=== PATIENT | male | born 1975 ===

== ENCOUNTER 2017-12-23 13:04 | Emergency (ER) | payer OTHER ==
[2017-12-23 14:16] VITALS: BMI 25.8
[2017-12-23 14:17] VITALS: BP 120/75; PULSE 58; RESP 18; TEMP 98.8; O2SAT 96
--- NOTE | 2017-12-23 14:26 | ED PDOC ---
Arrival/HPI - General Chief Complaint: Lower Extremity Problem/Injury Time Seen by Provider: 12/23/17 14:20 Historian: Patient - History of Present Illness Narrative History of Present Illness (Text): 12/23/17 14:23 42 y/o male, no significant pmh, nkda, c/o rt. ankle pain and swelling x 2 days s/p inversion injury. Aching pain, able to walk and bear weight, no numbness or tingling, no rash, no night sweat, no calf pain, no pain medication taken at home, no other medical or psychological complaints. 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" - Psychiatric Hx Substance Use: No - Anesthesia Hx Anesthesia: Yes Hx Anesthesia Reactions: No Hx Malignant Hyperthermia: No Family/Social History - Physician Review Nursing Documentation Reviewed: Yes Family/Social History: Unknown Family HX Smoking Status: Never Smoked Hx Alcohol Use: No Hx Substance Use: No Allergies/Home Meds Allergies/Adverse Reactions: Allergies No Known Allergies Allergy (Verified 12/23/17 14:16) Review of Systems - Review of Systems Constitutional: absent: Fatigue, Fevers Eyes: absent: Vision Changes ENT: absent: Hearing Changes Respiratory: absent: SOB, Cough Cardiovascular: absent: Chest Pain Gastrointestinal: absent: Abdominal Pain, Nausea, Vomiting Musculoskeletal: Arthralgias, Joint Swelling. absent: Back Pain, Neck Pain, Myalgias Skin: absent: Rash, Pruritis Psychiatric: absent: Anxiety, Depression, Suicidal Ideation Physical Exam Vital Signs Reviewed: Yes Vital Signs Temp Pulse Resp BP Pulse Ox 12/23/17 15:37 98.8 F 58 L 18 120/75 96 12/23/17 14:16 98.8 F 58 L 18 120/75 96 Temperature: Afebrile Blood Pressure: Normal Pulse: Bradycardic Respiratory Rate: Normal Appearance: Positive for: Well-Appearing, Non-Toxic, Comfortable Pain Distress: Mild Mental Status: Positive for: Alert and Oriented X 3 - Systems Exam Head: Present: Atraumatic, Normocephalic Pupils: Present: PERRL Extroacular Muscles: Present: EOMI Conjunctiva: Present: Normal Mouth: Present: Moist Mucous Membranes Neck: Present: Normal Range of Motion Respiratory/Chest: Present: Clear to Auscultation, Good Air Exchange. No: Respiratory Distress, Accessory Muscle Use Cardiovascular: Present: Regular Rate and Rhythm, Normal S1, S2. No: Murmurs Abdomen: No: Tenderness, Distention, Peritoneal Signs Back: Present: Normal Inspection Upper Extremity: Present: Normal Inspection. No: Cyanosis, Edema Lower Extremity: Present: Normal Inspection, Other (Rt. ankle/foot: +ttp on the lateral malleolus on the rt. ankle with mild swelling, no foot tenderness or swelling, able to bear weight, negative nathen and pandey signs, FROM without limitation, sensation intact, motor 5/5, +DPPT pulses, capillary refill< 2 seconds, neurovascular intact. ). No: Edema Neurological: Present: GCS=15, CN II-XII Intact, Speech Normal Skin: Present: Warm, Dry, Normal Color. No: Rashes Psychiatric: Present: Alert, Oriented x 3, Normal Insight, Normal Concentration Medical Decision Making ED Course and Treatment: 12/23/17 14:26 -rt. ankle xray -motrin -observe and reassess 12/23/17 15:19 -Rt. ankle xray show no fracture or dislocation -valerio wrap applied with neurovascular intact, crutches trained -Discharge home with motrin, valerio wrap, crutches, ice compression, non-weight bearing, follow up with your own pmd and orthopedic within 2 days, return to the ER for any new or worsening signs or symptoms. - RAD Interpretation Radiology Orders: 12/23/17 14:20 ANKLE RIGHT 3 VIEWS ROUTINE [RAD] Stat normal rt. ankle radiograph Rolled Gold Plater: Radiologist - Medication Orders Current Medication Orders: Discontinued Medications Ibuprofen (Motrin Tab) 600 mg PO STAT STA Stop: 12/23/17 14:21 Last Admin: 12/23/17 15:02 Dose: 600 mg MAR Pain/Vitals Document 12/23/17 15:02 ALISON (Rec: 12/23/17 15:02 ALISON [id number]) Pain Reassessment Is This A Pain ReAssessment? No Sleep Is patient sleeping during reassessment? No Presence of Pain Presence of Pain Yes - PA / LEAF BINNER / Resident Statement MD/DO has reviewed & agrees with the documentation as recorded. Disposition/Present on Arrival - Present on Arrival Any Indicators Present on Arrival: No History of DVT/PE: No History of Uncontrolled Diabetes: No Urinary Catheter: No History of Decub. Ulcer: No History Surgical Site Infection Following: None - Disposition Have Diagnosis and Disposition been Completed?: Yes Diagnosis: Ankle sprain, Ankle injury Disposition: HOME/ ROUTINE Disposition Time: 14:27 Patient Plan: Discharge Condition: IMPROVED Additional Instructions: -Discharge home with motrin, valerio wrap, crutches, ice compression, non-weight bearing, follow up with your own pmd and orthopedic within 2 days, return to the ER for any new or worsening signs or symptoms. Prescriptions: Ibuprofen [Motrin] 600 mg PO QID PRN #30 tab PRN Reason: Other Referrals: Jaz Stevens MD [Staff Provider] - [place] up [place] [facility] [place] [facility] [place] - Follow up with primary Forms: WORK NOTE
--- NOTE | 2017-12-24 09:00 | RAD ---
PROCEDURE: Right Ankle Radiographs. HISTORY: rt. ankle pain s/p twisting injury COMPARISON: None FINDINGS: BONES: Normal. No fracture. JOINTS: Normal. No osteoarthritis. Ankle mortise maintained. Talar dome intact SOFT TISSUES: Normal. OTHER FINDINGS: None. IMPRESSION: Normal right ankle radiographs.
== END 2017-12-23 15:37 | disposition home or self-care (01) ==
LOC: ED 13:04
DX: S93.401A Sprain of unspecified ligament of right ankle, initial encounter (principal); X50.1XXA Overexertion from prolonged static or awkward postures, initial encounter; Y93.01 Activity, walking, marching and hiking; Y92.480 Sidewalk as the place of occurrence of the external cause

== ENCOUNTER 2018-03-22 22:03 | Emergency (ER) | payer OTHER ==
[2018-03-22 22:08] VITALS: BMI 27.2
[2018-03-22 22:14] VITALS: BP 134/83; PULSE 59; RESP 18; TEMP 98.1
--- NOTE | 2018-03-22 22:56 | ED PDOC ---
Arrival/HPI <Alvino Mccullough - Last Filed: 03/23/18 00:27> - General Historian: Patient - History of Present Illness Time/Duration: > month Symptom Onset: Sudden Symptom Course: Intermittent Quality: Other ("shocking") <Michael Cardoso - Last Filed: 03/23/18 00:56> - General Chief Complaint: Chest Pain Time Seen by Provider: 03/22/18 22:37 - History of Present Illness Narrative History of Present Illness (Text): 03/22/18 22:56 Patient is a 42 year old male with no past medical history presenting to the emergency room with a complaint of intermittent "electrical shocking sensation" on the right side of his chest for greater than one month. Patient decided to come into the hospital tonight after speaking with his mother, "just to get checked out." The sensation is described as an electrical pulse starting in his right shoulder and radiating down to the right side of his chest. It occurs intermittent, most of the time with random movements. The sensation usually lasts less than a second, and at its longest duration lasted 10 seconds. The sensation does not radiate down her right arm or neck. He denies shortness of breath, without any limitations on walking. "I can walk as far as I want to all day long and not get short of breath." Denies fevers, chills, nausea, vomiting, diarrhea, constipation, shortness of breath, abdominal pain, numbness or tingling. 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" - Psychiatric Hx Substance Use: Yes - Anesthesia Hx Anesthesia: Yes Hx Anesthesia Reactions: No Hx Malignant Hyperthermia: No <Michael Cardoso - Last Filed: 03/23/18 00:56> Family/Social History - Physician Review Nursing Documentation Reviewed: Yes Family/Social History: No Known Family HX Smoking Status: Never Smoked Hx Alcohol Use: Yes Frequency of alcohol use: Few days per week Hx Substance Use: Yes Substance used: Marijuana <Michael Cardoso - Last Filed: 03/23/18 00:56> Allergies/Home Meds <Alvino Mccullough - Last Filed: 03/23/18 00:27> <Michael Cardoso - Last Filed: 03/23/18 00:56> Allergies/Adverse Reactions: Allergies No Known Allergies Allergy (Verified 12/23/17 14:16) Review of Systems - Physician Review All systems were reviewed & negative as marked: Yes - Review of Systems Constitutional: Normal Eyes: Normal ENT: Normal Respiratory: Normal Cardiovascular: Chest Pain (electrical-like sensation across right side of chest.). absent: Palpitations, Edema, Calf Pain, CUMMINGS, Orthopnea, Syncope Gastrointestinal: Normal Musculoskeletal: Normal Skin: Normal Neurological: Normal. absent: Headache, Dizziness Endocrine: Normal Hemo/Lymphatic: Normal Psychiatric: Normal <Michael Cardoso - Last Filed: 03/23/18 00:56> Physical Exam Vital Signs Reviewed: Yes Temperature: Afebrile Blood Pressure: Normal Pulse: Regular Respiratory Rate: Normal Appearance: Positive for: Well-Appearing, Non-Toxic, Comfortable Pain Distress: None Mental Status: Positive for: Alert and Oriented X 3 - Systems Exam Head: Present: Atraumatic, Normocephalic Extroacular Muscles: Present: EOMI Conjunctiva: Present: Normal Mouth: Present: Moist Mucous Membranes Nose (External): Present: Atraumatic Nose (Internal): Present: Normal Inspection, No Active Bleeding, Moist Neck: Present: Normal Range of Motion Respiratory/Chest: Present: Clear to Auscultation, Good Air Exchange. No: Respiratory Distress, Accessory Muscle Use Cardiovascular: Present: Regular Rate and Rhythm, Normal S1, S2, Peripheal Pulses Present. No: Murmurs Abdomen: No: Tenderness, Distention, Peritoneal Signs Back: Present: Normal Inspection Upper Extremity: Present: Normal Inspection, NORMAL PULSES. No: Cyanosis, Edema Lower Extremity: Present: Normal Inspection, NORMAL PULSES. No: Edema, CALF TENDERNESS Neurological: Present: GCS=15, Speech Normal, Motor Func Grossly Intact Skin: Present: Warm, Dry, Normal Color. No: Rashes Psychiatric: Present: Alert, Oriented x 3, Normal Insight, Normal Concentration <Michael Cardoso - Last Filed: 03/23/18 00:56> Vital Signs Temp Pulse Resp BP Pulse Ox 03/22/18 22:12 98.1 F 59 L 18 134/83 100 Medical Decision Making <Alvino Mccullough - Last Filed: 03/23/18 00:27> Re-evaluation Time: 00:37 Reassessment Condition: Re-examined, Improved - Lab Interpretations I have reviewed the lab results: Yes Interpretation: All labs normal - RAD Interpretation Ticket Broker: ED Physician - EKG Interpretation Interpreted by ED Physician: Yes Type: 12 lead EKG Comparison: No previous EKG avail. <Michael Cardoso - Last Filed: 03/23/18 00:56> ED Course and Treatment: Impression: Pt seen and evaluated with healthcare or medical. Aware and agree with HPI, clinical findings, plan, and management. Pt, with no significant past medical history, who presented for intermittent "shocking" sensation to his right chest x1 month. Plan: -- EKG -- Chest X-ray -- Labs, cardiac enzymes -- Reassess and disposition Progress Notes: (Alvino Mccullough) 03/22/18 23:43 Patient is a healthy appearing adult male in no acute distress, laying down with one hand behind his head watching videos on his cell phone. Atypical chest pain presentation - low/no suspicion of ischemic pathology Vital signs normal Labs, EKG and CXR 03/23/18 00:37 Discussed normal labs, EKG and CXR with patient. Patient has still not experienced any "electrical shockings" while in the hospital. He is feeling well and would like to go home. Will discharge patient home with instructions to follow up with his primary care physician within 2-3 days. Patient states he does not have a primary care physician. Will give patient information for [facility] at [facility] [place]. Patient states he understands and agrees. (Michael Cardoso) - Lab Interpretations Lab Results: 03/22/18 23:31 03/22/18 23:31 Lab Results 03/22/18 23:31: Sodium 139, Potassium 3.9, Chloride 103, Carbon Dioxide 27, Anion Gap 13, BUN 17, Creatinine 0.9, Est GFR ( Amer) > 60, Est GFR (Non- Af Amer) > 60, Random Glucose 108, Calcium 9.3, Magnesium 2.4 H, Total Bilirubin 0.3, AST 33, ALT 36, Alkaline Phosphatase 72, Lactate Dehydrogenase 378, Total Creatine Kinase 78, Troponin I < 0.01, Total Protein 7.4, Albumin 4.1 , Globulin 3.3, Albumin/Globulin Ratio 1.2 03/22/18 23:31: WBC 10.2, RBC 4.94, Hgb 15.6, Hct 44.9, MCV 90.9, MCH 31.6, MCHC 34.7, RDW 13.2, Plt Count 280, MPV 9.0, Gran % 51.5, Lymph % (Auto) 35.4 H , Cross % (Auto) 10.9 H, Eos % (Auto) 2.0, Baso % (Auto) 0.2, Gran # 5.26, Lymph # (Auto) 3.6 H, Cross # (Auto) 1.1 H, Eos # (Auto) 0.2, Baso # (Auto) 0.02 - RAD Interpretation Narrative RAD Interpretations (Text): 03/23/18 00:06 CXR - no acute process (Michael Cardoso) Radiology Orders: 03/22/18 23:07 CHEST PORTABLE [RAD] Stat - EKG Interpretation EKG Interpretation (Text): 03/23/18 00:06 Sinus Bradycardia @60bpm, normal axis, no acute ST segment changes (Michael Cardoso) - PA / LABOR EXPEDITER / Resident Statement / has reviewed & agrees with the documentation as recorded. / has examined the patient and agrees with the treatment plan. <Alvino Mccullough - Last Filed: 03/23/18 00:27> Disposition/Present on Arrival <Alvino Mccullough - Last Filed: 03/23/18 00:27> - Present on Arrival Any Indicators Present on Arrival: No History of DVT/PE: No History of Uncontrolled Diabetes: No Urinary Catheter: No History of Decub. Ulcer: No History Surgical Site Infection Following: None - Disposition Have Diagnosis and Disposition been Completed?: Yes Disposition Time: 00:41 Patient Plan: Discharge <Michael Cardoso - Last Filed: 03/23/18 00:56> - Disposition Diagnosis: Atypical chest pain Disposition: HOME/ ROUTINE Patient Problems: Current Active Problems Problem Status Onset Atypical chest pain Acute Condition: GOOD Discharge Instructions (ExitCare): Chest Pain (ED) Additional Instructions: Patient is to follow up with his primary care physician within 2-3 days. If patient experiences any new or worsening symptoms, please go directly to the nearest emergency department. Referrals: PCP,NO [Primary Care Provider] - Follow up with primary [facility] at [facility] [place] [Outside] - Follow up with primary Forms: [employer] (Algerian)
[2018-03-22 23:51] LABS: BASO # 0.02 K/mm3 (0.0-2.0); BASO % 0.2 % (0.0-3.0); EOS # 0.2 (0.0-0.7); GRAN # 5.26 (1.4-6.5); GRAN % 51.5 % (50.0-68.0); HEMOGLOBIN 15.6 g/dL (14.0-18.0); LYMPH # 3.6 (1.2-3.4); LYMPH % 35.4 % (22.0-35.0); MEAN CELL VOLUME 90.9 fl (80.0-105.0); MEAN CORPUSCULAR HEMOGLOBIN 31.6 pg (25.0-35.0); MEAN CORPUSCULAR HGB CONC 34.7 g/dl (31.0-37.0); MONO # 1.1 (0.1-0.6); MONO % 10.9 % (1.0-6.0); RBC 4.94 10^6/uL (3.5-6.1); RED CELL DISTRIBUTION WIDTH 13.2 % (11.5-14.5); WHITE BLOOD COUNT 10.2 10^3/ul (4.5-11.0)
[2018-03-23 00:19] LABS: ALB/GLOB RATIO 1.2 (1.1-1.8); ALBUMIN 4.1 g/dL (3.0-4.8); ALT/SGPT 36 U/L (7-56); AST/SGOT 33 U/L (17-59); BLOOD UREA NITROGEN 17 mg/dL (7-21); CALCIUM 9.3 mg/dL (8.4-10.5); GFR NON-AFRICAN AMERICAN > 60
[2018-03-23 00:29] LABS: TROPONIN I < 0.01 ng/mL
[2018-03-23 01:08] VITALS: O2SAT 98
--- NOTE | 2018-03-23 08:40 | RAD ---
Date of service: 03/22/2018 HISTORY: chest pain COMPARISON: No prior. FINDINGS: LUNGS: The lungs are well inflated and clear. PLEURA: No significant pleural effusion identified, no pneumothorax apparent. CARDIOVASCULAR: Normal. OSSEOUS STRUCTURES: No significant abnormalities. VISUALIZED UPPER ABDOMEN: Normal. OTHER FINDINGS: None. IMPRESSION: No active pulmonary disease.
--- NOTE | 2018-03-23 10:30 | CARD ---
APPROVED REPORT Date of service: 03/22/2018 EKG Measurement Heart [id number] <Conclusion> Sinus bradycardia Otherwise normal ECG
== END 2018-03-23 01:07 | disposition home or self-care (01) ==
LOC: ED 22:03
DX: R07.89 Other chest pain (principal)

== ENCOUNTER 2018-04-18 13:28 | Emergency (ER) | payer OTHER ==
[2018-04-18 13:28] VITALS: BMI 27.2
[2018-04-18 14:42] VITALS: RESP 18
--- NOTE | 2018-04-18 15:44 | ED PDOC ---
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 Patient denies any fever, chills, chest pain, shortness of breath, nausea, vomiting, diarrhea, back pain, neck pain, headache, dizziness, or any other complaints. 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" - Psychiatric Hx Substance Use: Yes - Anesthesia Hx Anesthesia: Yes Hx Anesthesia Reactions: No Hx Malignant Hyperthermia: No Family/Social History - Physician Review Nursing Documentation Reviewed: Yes Family/Social History: Unknown Family HX Smoking Status: Never Smoked Hx Alcohol Use: Yes Hx Substance Use: Yes Substance used: Marijuana Allergies/Home Meds Allergies/Adverse Reactions: Allergies No Known Allergies Allergy (Verified 12/23/17 14:16) Review of Systems - Physician Review All systems were reviewed & negative as marked: Yes - Review of Systems Constitutional: Normal Eyes: Normal ENT: Normal Respiratory: Normal. absent: SOB, Cough Cardiovascular: Normal. absent: Chest Pain Gastrointestinal: Normal. absent: Abdominal Pain Genitourinary Male: Normal. absent: Dysuria, Frequency, Hematuria Musculoskeletal: Normal. absent: Back Pain, Neck Pain Skin: Rash Neurological: Normal. absent: Headache, Dizziness Endocrine: Normal Hemo/Lymphatic: Normal Psychiatric: Normal Physical Exam Vital Signs Reviewed: Yes Vital Signs Temp Pulse Resp BP Pulse Ox 04/18/18 14:37 98.5 F 77 18 117/80 98 Temperature: Afebrile Blood Pressure: Normal Pulse: Regular Respiratory Rate: Normal Appearance: Positive for: Well-Appearing, Non-Toxic, Comfortable Pain Distress: None Mental Status: Positive for: Alert and Oriented X 3 - Systems Exam Head: Present: Atraumatic, Normocephalic Pupils: Present: PERRL Extroacular Muscles: Present: EOMI Conjunctiva: Present: Normal Mouth: Present: Moist Mucous Membranes Neck: Present: Normal Range of Motion Respiratory/Chest: Present: Clear to Auscultation, Good Air Exchange. No: Respiratory Distress, Accessory Muscle Use Cardiovascular: Present: Regular Rate and Rhythm, Normal S1, S2. No: Murmurs Abdomen: No: Tenderness, Distention, Peritoneal Signs Back: Present: Normal Inspection Upper Extremity: Present: Normal Inspection. No: Cyanosis, Edema Lower Extremity: Present: Normal Inspection. 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 Plan: -- Benadryl -- Reassess and disposition Progress Notes: 04/18/18 18:30 patient was seen for benign, itchy,localized red raised patch on the abdomen. no s/s of infection, lesions have typical appearance of bug bite. only simple measures required at this ED visit, including antihistamines. - Medication Orders Current Medication Orders: Diphenhydramine HCl (Benadryl) 25 mg PO ONCE ONE Stop: 04/18/18 15:36 - Scribe Statement Kamini Arita All medical record entries made by the Scribe were at my direction and personally dictated by me. I have reviewed the chart and agree that the record accurately reflects my personal performance of the history, physical exam, medical decision making, and the department course for this patient. I have also personally directed, reviewed, and agree with the discharge instructions and disposition. Disposition/Present on Arrival - Present on Arrival Any Indicators Present on Arrival: No History of DVT/PE: No History of Uncontrolled Diabetes: No Urinary Catheter: No History of Decub. Ulcer: No History Surgical Site Infection Following: None - Disposition Have Diagnosis and Disposition been Completed?: Yes Diagnosis: Bug bite Disposition: HOME/ ROUTINE Disposition Time: 15:50 Patient Plan: Discharge Condition: STABLE Discharge Instructions (ExitCare): Insect Bites and Stings (DC) Additional Instructions: Take an antihistamine for the itchiness. This should resolve on its own otherwise. Return for any new or worsening symptoms. BO MARTINEZ, thank you for letting us take care of you today. Your provider was Dr. Tucker Garcia and you were treated for BITE. The emergency medical care you received today was directed at your acute symptoms. If you were prescribed any medication, please fill it and take as directed. It may take several days for your symptoms to resolve. Return to the Emergency Department if your symptoms worsen, do not improve, or if you have any other problems. Please contact your doctor or call one of the physicians/clinics you have been referred to that are listed on the Patient Visit Information form that is included in your discharge packet. Bring any paperwork you were given at [facility] with you along with any medications you are taking to your follow up visit. Our treatment cannot replace ongoing medical care by a primary care provider outside of the emergency department. Thank you for allowing the [email or web address] team to be part of your care today. If you had an X-Ray or CT scan: A Radiologist will review the ED reading if any change in treatment is needed we will contact you. If you had a blood, urine, or wound culture: It will take several days for the results, if any change in treatment is needed we will contact you. If you had an STI test: It will take 48 hours for the results. Please call after 1 week if you have not heard back. Prescriptions: Loratadine [Claritin] 10 mg PO DAILY PRN #14 tab PRN Reason: Itching / Pruritus Referrals: [facility] [Outside] - Follow up with primary uRchi Anderson MD [Medical Doctor] - Follow up with primary Forms: [employer] (Peruvian)
[2018-04-18 16:36] VITALS: BP 126/85; PULSE 68; TEMP 97.4; O2SAT 100
== END 2018-04-18 16:36 | disposition home or self-care (01) ==
LOC: ED 13:28
DX: S30.861A Insect bite (nonvenomous) of abdominal wall, initial encounter (principal); W57.XXXA Bitten or stung by nonvenomous insect and other nonvenomous arthropods, initial encounter